=== PATIENT | male | born 1975 | race Caucasian/White ===

== ENCOUNTER 2020-09-27 03:19 | Emergency (ER) | payer BC ==
--- NOTE | 2020-09-27 03:35 | EDM.PDOC ---
ED HPI GENERAL MEDICAL PROBLEM - General Chief Complaint: Neurological Problem Stated Complaint: [facility] Time Seen by Provider: 09/27/20 03:26 Source of Information: Reports: Patient History Limitations: Reports: No Limitations - History of Present Illness INITIAL COMMENTS - FREE TEXT/NARRATIVE: This is a 45-year-old male. Apparently about 30 to 40 minutes ago he got up because of his daughter she was needing some help and was complaining of a sore throat and he got her some water. He felt little nauseated when he was getting the water then he felt like he needed to go to the bathroom so he went into the bathroom to and urinated and then afterwards he does not remember what happened and then his was standing over him and he had passed out. On the way to the ER he had another episode of nausea and he noted his heart rate dropped into the 40s but then it was back up to normal essentially when he got to the ER. He is not complaining of any particular illness other than the intermittent nausea. He states he has passed out before due to pain but he is not in any pain. He has had no cough no fever no congestion no abdominal cramps and no diarrhea. His blood sugar was 100 when they checked it in the ambulance. - Related Data Allergies Allergy/AdvReac Type Severity Reaction Status Date / Time No Known Allergies Allergy Verified 09/27/20 03:36 Home Meds: Home Meds Ondansetron [Zofran] 4 mg PO Q6H PRN #12 tab 09/27/20 [Rx] atorvaSTATin Calcium [Atorvastatin Calcium] 40 mg PO BEDTIME 09/27/20 [History] ED ROS GENERAL - Review of Systems Review Of Systems: See Below Constitutional: Denies: Fever, Chills, Weakness HEENT: Reports: No Symptoms Respiratory: Denies: Shortness of Breath, Cough Cardiovascular: Reports: No Symptoms Endocrine: Reports: No Symptoms GI/Abdominal: Reports: Nausea. Denies: Abdominal Pain, Diarrhea, Vomiting : Denies: Dysuria Musculoskeletal: Reports: No Symptoms Skin: Reports: No Symptoms Neurological: Reports: Dizziness, Syncope Psychiatric: Reports: No Symptoms Hematologic/Lymphatic: Reports: No Symptoms ED EXAM, NEURO - Physical Exam Exam: See Below Exam Limited By: No Limitations General Appearance: Alert, WD/WN, No Apparent Distress Eye Exam: Bilateral Eye: Normal Inspection Ears: Normal External Exam, Normal Canal, Normal TMs Nose: Normal Inspection Throat/Mouth: Normal Voice, No Airway Compromise Head Exam: Normocephalic Neck: Supple Respiratory/Chest: No Respiratory Distress, Lungs Clear, Normal Breath Sounds Cardiovascular: Regular Rate, Rhythm, No Murmur GI/Abdominal: Normal Bowel Sounds, Soft, Non-Tender Neurological: Alert, Normal Mood/Affect, CN II-XII Intact, No Motor/Sensory Deficits, Oriented x 3 Back Exam: Normal Inspection, Full Range of Motion Extremities: Normal Inspection, Normal Range of Motion Psychiatric: Normal Affect, Normal Mood Skin Exam: Warm, Dry #1 Interpretation EKG Date: 09/27/20 Time: 03:20 EKG Interpretation Comments: KG shows a normal sinus rhythm rate of 63, there is no acute ST or T wave changes and there is no ischemia noted Course - Vital Signs Last Recorded V/S: Last Vital Signs Temp 97.1 F 09/27/20 03:22 Pulse 66 09/27/20 03:22 Resp 16 09/27/20 03:22 BP 92/56 L 09/27/20 03:22 Pulse Ox 100 09/27/20 03:22 Orthostatic Blood Pressure [ 124/75 Standing] Orthostatic Blood Pressure [ 117/73 Sitting] Orthostatic Blood Pressure [ 118/94 Supine] - Orders/Labs/Meds Orders: Active Orders 24 hr Category Date Time Status EKG 12 Lead [EKG Documentation Completion] [RC] STAT Care 09/27/20 03:51 Active Orthostatic Vital Signs [RC] ASDIRECTED Care 09/27/20 03:37 Active Lactated Ringers [Ringers, Lactated] 1,000 ml Med 09/27/20 04:45 Active IV ASDIRECTED Medication Orders Lactated Ringer's (Ringers, Lactated) 1,000 mls @ 1,000 mls/hr IV ASDIRECTED VINAY Last Admin: 09/27/20 04:40 Dose: 1,000 mls/hr Documented by: RENE Labs: Laboratory Tests 09/27/20 09/27/20 09/27/20 Range/Units 03:45 03:45 05:55 WBC 5.15 (4.23-9.07) K/mm3 RBC 4.73 (4.63-6.08) M/mm3 Hgb 13.6 L (13.7-17.5) gm/dl Hct 41.4 (40.1-51.0) % MCV 87.5 (79.0-92.2) fl MCH 28.8 (25.7-32.2) pg MCHC 32.9 (32.2-35.5) g/dl RDW Std Deviation 42.3 (35.1-43.9) fL Plt Count 139 L (163-337) K/mm3 MPV 10.4 (9.4-12.3) fl Neut % (Auto) 35.8 (34.0-67.9) % Lymph % (Auto) 51.1 (21.8-53.1) % [place] % (Auto) 8.0 (5.3-12.2) % Eos % (Auto) 4.3 (0.8-7.0) Baso % (Auto) 0.6 (0.1-1.2) % Neut # (Auto) 1.85 (1.78-5.38) K/mm3 Lymph # (Auto) 2.63 (1.32-3.57) K/mm3 [place] # (Auto) 0.41 (0.30-0.82) K/mm3 Eos # (Auto) 0.22 (0.04-0.54) K/mm3 Baso # (Auto) 0.03 (0.01-0.08) K/mm3 Sodium 143 (136-145) mEq/L Potassium 3.5 (3.5-5.1) mEq/L Chloride 108 H (98-107) mEq/L Carbon Dioxide 23 (21-32) mEq/L Anion Gap 15.5 H (5-15) BUN 23 H (7-18) mg/dL Creatinine 1.1 (0.7-1.3) mg/dL Est Cr Clr Drug Dosing TNP Estimated GFR (MDRD) > 60 (>60) mL/min BUN/Creatinine Ratio 20.9 H (14-18) Glucose 104 (74-106) mg/dL Calcium 8.0 L (8.5-10.1) mg/dL Magnesium 1.7 L (1.8-2.4) mg/dl Total Bilirubin 0.3 (0.2-1.0) mg/dL AST 22 (15-37) U/L ALT 39 (16-63) U/L Alkaline Phosphatase 61 (46-116) U/L Troponin I < 0.017 (0.00-0.056) ng/mL Total Protein 6.5 (6.4-8.2) g/dl Albumin 3.3 L (3.4-5.0) g/dl Globulin 3.2 gm/dL Albumin/Globulin Ratio 1.0 (1-2) Urine Color Yellow (Yellow) Urine Appearance Clear (Clear) Urine pH 5.5 (5.0-8.0) Ur Specific [place] > or = 1.030 (1.005-1.030) Urine Protein Negative (Negative) Urine Glucose (UA) Negative (Negative) Urine Ketones Trace H (Negative) Urine Occult Blood Negative (Negative) Urine Nitrite Negative (Negative) Urine Bilirubin 1+ H (Negative) Urine Urobilinogen 0.2 (0.2-1.0) Ur Leukocyte Esterase Negative (Negative) Urine RBC 0-5 (0-5) /hpf Urine WBC 0-5 (0-5) /hpf Ur Squamous Epith Cells 0-5 (0-5) /hpf Urine Bacteria Few (FEW) /hpf Urine Mucus Moderate H (FEW) /hpf Meds: Medications Generic Name Dose Route Start Last Admin Trade Name Freq PRN Reason Stop Dose Admin Lactated Ringer's 1,000 mls @ 1,000 mls/hr 09/27/20 04:45 09/27/20 04:40 Ringers, Lactated IV 1,000 mls/hr ASDIRECTED [facility] Administration - Re-Assessments/Exams Free Text/Narrative Re-Assessment/Exam: 09/27/20 03:54 The static vital signs were as noted in the nurses notes just know that when he was lying down the systolic was 118 standing up it was 124 pulse lying down was 68 standing up to 77. That is minimal change as far as orthostatic vital signs are concerned. 09/27/20 06:06 Patient has been doing fine since he arrived to the ER. I think it was a combination of mild dehydration and nausea causing a vasovagal syncope. I am going to release him from the clinic but I encouraged him to drink more fluids I will give him something for nausea at home and to take it easy today. Departure - Departure Time of Disposition: 06:07 Disposition: Home, Self-Care 01 Condition: Good Clinical Impression: Syncope and collapse, Nausea, Mild dehydration - Discharge Information *PRESCRIPTION DRUG MONITORING PROGRAM REVIEWED*: Not Applicable *COPY OF PRESCRIPTION DRUG MONITORING REPORT IN PATIENT JE: Not Applicable Prescriptions: Ondansetron [Zofran] 4 mg PO Q6H PRN #12 tab PRN Reason: Nausea Instructions: Dehydration, Adult, [id number], Syncope, [id number] Referrals: PCP,None [Primary Care Provider] - Forms: ED Department Discharge, ED Return to Work/School Form Additional Instructions: Was seen in the ER today for a syncopal episode, it would appear that there is a combination of reasons including nausea and mild dehydration that could have caused this to happen, however you need to follow-up with your family doctor for continued evaluation especially if you have another syncopal episode, rest today and sleep, take the medication as needed for nausea, drink lots of fluids today to rehydrate yourself, return to the ER Sepsis Event Note (ED) - Focused Exam Vital Signs: Vital Signs Temp Pulse Resp BP Pulse Ox 09/27/20 03:22 97.1 F 66 16 92/56 L 100 - My Orders Last 24 Hours: My Active Orders 09/27/20 03:37 Orthostatic Vital Signs [RC] ASDIRECTED 09/27/20 03:51 EKG 12 Lead [EKG Documentation Completion] [RC] STAT 09/27/20 04:45 Lactated Ringers [Ringers, Lactated] 1,000 ml IV ASDIRECTED - Assessment/Plan Last 24 Hours: My Active Orders 09/27/20 03:37 Orthostatic Vital Signs [RC] ASDIRECTED 09/27/20 03:51 EKG 12 Lead [EKG Documentation Completion] [RC] STAT 09/27/20 04:45 Lactated Ringers [Ringers, Lactated] 1,000 ml IV ASDIRECTED
[2020-09-27] MEDS ORDERED: Lactated Ringers 1,000 ML IV SCH (04:45)
== END 2020-09-27 06:15 | disposition home or self-care (01) ==
LOC: EDBD 03:19 → JD.ED 03:19
DX: E86.0 Dehydration (principal); R55 Syncope and collapse; R11.0 Nausea; R42 Dizziness and giddiness
CPT/HCPCS: 36415; 80053; 81001; 83735; 84484; 85025; 93005; 99284; J7120; 93010